=== PATIENT | male | born 1965 | race Caucasian/White ===

== ENCOUNTER 2024-08-05 10:56 | Inpatient (IN) | payer OTHER ==
[~2024-08-05] VITALS: Ht 185.4 cm; Wt 115.8 kg
--- NOTE | 2024-08-05 11:04 | ERN ---
ED Note History of Present Illness Stated Complaint: LOWER ABD PAIN Chief Complaint: Abdominal Pain Time Seen by MD: 10:58 Dictation: PATIENT IS A 59-YEAR-OLD MALE HERE WITH COMPLAINTS OF SUPRAPUBIC AND LEFT LOWER QUADRANT PAIN WITH CONSTIPATION AND DIFFICULTY WITH URINATION ONSET YESTERDAY. HE STATES YESTERDAY HE WAS HAVING TROUBLE URINATING AND THEN WHEN HE HAD TO HAVE A BOWEL MOVEMENT, IT WAS HARD AND VERY CONSTIPATED. STATES HE IS NOW EMPTYING HIS BLADDER DENIES FEVER CHILLS NO NAUSEA NO VOMITING. PATIENT DOES HAVE A HISTORY OF DIVERTICULAR Allergies: Coded Allergies: acetaminophen (Unverified Allergy, Unknown, 08/05/24) propoxyphene (Unverified Allergy, Unknown, 08/05/24) Past Medical History RN Note Reviewed/Agreed w/PFSH: Yes Review of System Dictation CONSTITUTIONAL: NEGATIVE EXCEPT FOR HPI HEAD/FACE: NEGATIVE EXCEPT FOR HPI EENT: NEGATIVE EXCEPT FOR HPI RESPIRATORY: NEGATIVE EXCEPT FOR HPI GASTROINTESTINAL/ABDOMINAL: NEGATIVE EXCEPT FOR HPI SUPRAPUBIC AND LEFT LOWER QUADRANT TENDERNESS GENITOURINARY: NEGATIVE EXCEPT FOR HPI MUSCULOSKELETAL: NEGATIVE EXCEPT FOR HPI INTEGUMENTARY: NEGATIVE EXCEPT FOR HPI NEUROLOGICAL/PSYCH: NEGATIVE EXCEPT FOR HPI HEMATOLOGIC/LYMPHATIC: NEGATIVE EXCEPT FOR HPI ALL SYSTEMS NEGATIVE, EXCEPT NOTED ABOVE. 13 POINT REVIEW OF SYSTEMS ASSESSED AND ALL NEGATIVE EXCEPT FOR ABOVE. Initial Vital Sign VS Vital Signs Date Time Temp Pulse Resp B/P (MAP) Pulse Ox O2 Delivery O2 Flow Rate FiO2 08/05/24 10:57 97.9 101 16 128/88 98 Room Air 0 08/05/24 11:25 21 Physical Exam Dictation VITAL SIGNS REVIEWED GENERAL APPEARANCE: ALERT, ORIENTED X 3, MILD ACUTE DISTRESS, WELL DEVELOPED, NOURISHED. HEAD AND FACE: NON-TRAUMATIC. EYES: PERRL, PINK CONJUNCTIVAS, EYELID NO TRAUMA, ANTERIOR CHAMBER WITH ARCUS SENILIS. EARS: PINNAS INTACT AND NO SIGNS OF TRAUMA OR ERYTHEMA EAR CANALS CLEAR AND NO D ISCHARGE TM NO ERYTHEMA NOSE: NO DISCHARGE, NO BLEEDING. OROPHARYNX: MOUTH NORMAL, TONGUE PINK, PHARYNX CLEAR,NO ERYTHEMA, TONSILS NO EXUDATES, NO ABSCESSES NOTED, MUCOUS MEMBRANE MOIST NECK: SUPPLE, NON-TENDER, NO THYROMEGALY, NO MASSES, NO JVD, NO BRUITS BREAST:DEFERRED CHEST:NO TENDERNESS, NO CREPITUS, NO PARADOXICAL MOVEMENT, NO RETRACTIONS LUNGS:CLEAR, WELL-VENTILATED, SYMMETRIC, NO RALES, NO WHEEZING, NO RHONCHI, NO STRIDOR, GOOD BREATH SOUNDS BILATERALLY HEART: REGULAR RATE, REGULAR RHYTHM, NO MURMUR, NO GALLOPS MILD SUPRAPUBIC AND LEFT LOWER QUADRANT TENDERNESS WITH PALPATION, NO REBOUND, NO MASSES NO HEPATOMEGALY, NO SPLENOMEGALY, NO PULLIAM'S SIGN, NO HERNIAS. RECTAL: DEFERRED GENITAL: DEFERRED NEUROLOGICAL: NORMAL SPEECH, MOTOR FUNCTION INTACT, SENSORY FUNCTION INTACT MUSCULOSKELETAL: NECK NONTENDER, FULL RANGE OF MOTION, BACK NONTENDER, FULL RANGE OF MOTION, EXTREMITIES: NONTENDER, FULL RANGE OF MOTION SKIN: COLOR PINK, DRY, NO TURGOR, NO RASH, NO LACERATIONS, NO ABRASIONS, NO CONTUSIONS. LYMPHATIC: DEFERRED Results (Laboratory/Radiology) Laboratory/Radiology Laboratory Tests Test 08/05/24 11:10 08/05/24 11:20 08/06/24 05:16 Urine Color YELLOW (YELLOW) Urine Appearance CLEAR (CLEAR) Urine pH 6.0 (5.0-8.0) Urine Specific [place] 1.016 (1.001-1.031) Urine Protein 30 mg/dL (NEGATIVE) H Urine Glucose (UA) NEGATIVE mg/dL (NEGATIVE) Urine Ketones NEGATIVE mg/dL (NEGATIVE) Urine Occult Blood NEGATIVE (NEGATIVE) Urine Nitrate NEGATIVE (NEGATIVE) Urine Bilirubin NEGATIVE mg/dL (NEGATIVE) Urine Urobilinogen 0.2 mg/dL (0.2-1.0) Urine Leukocyte Esterase NEGATIVE Radha/uL Urine RBC 2-5 /HPF (0-1) H Urine WBC 2-5 /HPF (0-1) H Urine Bacteria None /HPF (None Seen) White Blood Count 15.3 K/uL (4.8-10.8) H 11.4 K/uL (4.8-10.8) #H Red Blood Count 5.02 MIL/uL (4.50-6.20) 4.32 MIL/uL (4.50-6.20) L Hemoglobin 15.0 g/dL (14.0-18.0) 12.9 g/dL (14.0-18.0) L Hematocrit 43.9 % (42-54) 38.5 % (42-54) L Mean Corpuscular Volume 87.5 fL (79-99) 89.1 fL (79-99) Mean Corpuscular Hemoglobin 29.9 pg (27.0-33.0) 29.9 pg (27.0-33.0) Mean Corpuscular Hemoglobin Concent 34.2 g/dL (32.0-36.0) 33.5 g/dL (32.0-36.0) Red Cell Distribution Width 13.8 % (11.0-15.5) 13.6 % (11.0-15.5) Platelet Count 200 K/uL (130-400) 169 K/uL (130-400) Mean Platelet Volume 9.9 fL (7.5-10.5) 10.1 fL (7.5-10.5) Immature Granulocyte % (Auto) 0.3 % (0-1) 0.4 % (0-1) Neutrophils (%) (Auto) 83.5 % (40.0-77.0) H 77.7 % (40.0-77.0) H Lymphocytes (%) (Auto) 9.8 % (21.0-51.0) L 12.1 % (21.0-51.0) L Monocytes (%) (Auto) 5.8 % (3.0-13.0) 7.8 % (3.0-13.0) Eosinophils (%) (Auto) 0.3 % (0.0-8.0) 1.7 % (0.0-8.0) Basophils (%) (Auto) 0.3 % (0.0-5.0) 0.3 % (0.0-5.0) Neutrophils # (Auto) 12.7 K/uL (1.8-7.7) H 8.8 K/uL (1.8-7.7) H Lymphocytes # (Auto) 1.5 K/uL (1.0-4.8) 1.4 K/uL (1.0-4.8) Monocytes # (Auto) 0.9 K/uL (0.1-1.0) 0.9 K/uL (0.1-1.0) Eosinophils # (Auto) 0.05 K/uL (0.00-0.70) 0.19 K/uL (0.00-0.70) Basophils # (Auto) 0.05 K/uL (0.00-0.20) 0.03 K/uL (0.00-0.20) Absolute Immature Granulocyte (auto 0.04 K/uL (0-1) 0.04 K/uL (0-1) Segmented Neutrophils % 59 % (40-70) Band Neutrophils % 15 % (0-2) H Lymphocytes % (Manual) 22 % (22-44) Monocytes % (Manual) 4 % (2-9) Nucleated Red Blood Cells 0.0 % (0.0-0.19) 0.0 % (0.0-0.19) Differential Comment MANUAL DIFFERENTIAL White Cell Morphology Comment CONSISTENT W/DIFF Platelet Morphology Comment ADEQUATE Red Blood Cell Morphology NORMAL Sodium Level 132 mmol/L (136-145) L 138 mmol/L (136-145) Potassium Level 3.8 mmol/L (3.5-5.1) 4.0 mmol/L (3.5-5.1) Chloride Level 97 mmol/L (101-111) L 103 mmol/L (101-111) Carbon Dioxide Level 28 mmol/L (21-32) 24 mmol/L (21-32) Blood Urea Nitrogen 7 mg/dL (7-18) 8 mg/dL (7-18) Creatinine 0.9 mg/dL (0.5-1.3) 0.8 mg/dL (0.5-1.3) Glomerular Filtration Rate Calc 99 mL/min (>90) 103 mL/min (>90) Random Glucose 133 mg/dL (70-105) H 112 mg/dL (70-105) H Hemoglobin A1c 5.0 % (4.0-6.0) Estimated Average Glucose (eAG) 97 mg/dL (70-126) Total Calcium 9.3 mg/dL (8.5-10.1) 8.5 mg/dL (8.5-10.1) Lipase 15 U/L (16-77) L Erythrocyte Sedimentation Rate 41 MM/HR (0-20) H Lactic Acid Level 1.4 mmol/L (0.8-2.5) Magnesium Level 2.00 mg/dL (1.80-2.40) Total Bilirubin 0.9 mg/dL (0.2-1.0) Direct Bilirubin 0.1 mg/dL (0.0-0.3) Aspartate Amino Transf (AST/SGOT) 23 U/L (10-37) Alanine Aminotransferase (ALT/SGPT) 20 U/L (12-78) Alkaline Phosphatase 58 U/L (50-136) Total Protein 6.5 g/dL (6.0-8.3) Albumin 2.8 g/dL (3.5-5.0) L Labs Reviewed?: Yes ED Course ED Course Orders Procedure Category Date Status Time Cbc With Differential LAB 08/05/24 Complete 11:01 Urinalysis Profile LAB 08/05/24 Complete 11:01 Ct Abdomen/Pelvis CT 08/05/24 Resulted W/Contrast 11:01 0.9%Nacl 1000ml (Ns PHA 08/05/24 Complete 1000ml) 11:30 Ketorolac PHA 08/05/24 Complete Tromethamine 30mg/Ml 11:30 Lipase LAB 08/05/24 Complete 11:01 Basic Metabolic Panel LAB 08/05/24 Complete 11:01 Manual Differential LAB 08/05/24 Complete 11:20 Iohexol (Omnipaque) PHA 08/05/24 Complete 13:29 Morphine 2mg Syg PHA 08/05/24 Complete (Morphine 2mg Syg) 15:00 Blood Cult DAMIR 08/05/24 In Process 15:03 Zosyn 3.375gm+Ns 50ml PHA 08/05/24 Complete (Zosyn 3.375gm+Ns 15:03 Morphine 4mg Syg PHA 08/05/24 Complete (Morphine 4mg Syg) 18:30 Admit Orders ADM 08/05/24 Transmitted 19:02 Edm Admit Bridge Order ADM 08/05/24 Transmitted 19:02 Vital Signs(Adult CPOE 08/05/24 Transmitted Hospitalist) 20:20 Daily Weights CPOE 08/05/24 Transmitted 20:20 I&O Q Shift CPOE 08/05/24 Transmitted 20:20 Acetaminophen 325 Tab PHA 08/05/24 In Process (Tylenol 325mg Tab 20:30 Acetaminophen 325 Tab PHA 08/05/24 In Process (Tylenol 325mg Tab 20:30 Ondansetron 4mg Inj PHA 08/05/24 In Process (Zofran 4mg Inj) 20:30 Nurse To Enter Home CPOE 08/05/24 Transmitted Medication 20:20 Admit Orders ADM 08/05/24 Transmitted 20:20 Condition: CPOE 08/05/24 Transmitted 20:20 Activity: Ad Maci CPOE 08/05/24 Transmitted 20:20 Full Liquid DIET 08/06/24 Transmitted Breakfast Apply Scds CPOE 08/05/24 Transmitted 20:20 Zosyn 3.375gm+Ns 50ml PHA 08/05/24 In Process (Zosyn 3.375gm+Ns 23:30 0.9%Nacl 1000ml (Ns PHA 08/05/24 In Process 1000ml) 20:30 Famotidine 20mg Vial PHA 08/05/24 In Process (Pepcid 20mg Vial) 21:00 Morphine 2mg Syg PHA 08/05/24 In Process (Morphine 2mg Syg) 20:30 Cbc With Differential LAB 08/06/24 Complete 04:00 Hemoglobin A1c LAB 08/06/24 Complete 04:00 Magnesium 2gm Premix PHA 08/05/24 In Process 50ml (Magnesium 2gm 20:30 Initiate Po CORBIN 08/05/24 In Process Hypokalemia Protoc 20:20 Potassium Chloride PHA 08/05/24 In Process 20meq/100ml ([place] 20:30 Potassium Chl 10% PHA 08/05/24 In Process Elixir 20meq (Kcl 10% 20:30 Potassium Chloride PHA 08/05/24 In Process 20meq Er (K-Dur/Klor- 20:30 Notify Physician If CPOE 08/05/24 Transmitted There Is 20:20 Notify Md On The Next CPOE 08/05/24 Transmitted 20:20 Notify Md On The CPOE 08/05/24 Transmitted Next(Cont.) 20:20 Guaifenesin-Dm PHA 08/06/24 In Process 200/20mg 10ml 01:00 Erythrocyte LAB 08/06/24 Complete Sedimentation Rate 04:00 Lactic Acid LAB 08/06/24 Complete 04:00 Hepatic Function Panel LAB 08/06/24 Complete 04:00 Basic Metabolic Panel LAB 08/06/24 Complete 04:00 Magnesium LAB 08/06/24 Complete 04:00 Current Medications Medications (Trade) Dose Ordered Sig/Mikey Route PRN Reason Start Time Stop Time Status Last Admin Dose Admin Iohexol (Omnipaque) 75 ml STK-MED ONCE IV 08/05/24 13:29 08/05/24 13:29 DC Ketorolac Tromethamine (toRADol) 30 mg ONCE ONCE IVP 08/05/24 11:30 08/05/24 11:31 DC 08/05/24 11:29 Morphine Sulfate (morPHINE 2MG SYG) 2 mg ONCE ONCE IVP 08/05/24 15:00 08/05/24 15:01 DC 08/05/24 14:58 Morphine Sulfate (morPHINE 4MG SYG) 4 mg ONCE IVP 08/05/24 18:30 08/05/24 23:30 DC 08/05/24 18:46 Piperacillin Sod/ Tazobactam Sod (Zosyn 3.375gm+NS 50ml) 3.375 gm ONCE STAT IVPB 08/05/24 15:03 08/05/24 15:05 DC 08/05/24 15:34 Sodium Chloride 1,000 ml @ 0 mls/hr ONCE ONCE IV 08/05/24 11:30 08/05/24 11:31 DC 08/05/24 11:28 Vital Signs Date Time Temp Pulse Resp B/P (MAP) Pulse Ox O2 Delivery O2 Flow Rate FiO2 08/06/24 03:49 98.8 81 18 139/90 96 Room Air 08/05/24 23:22 97 Room Air* 0 08/05/24 22:10 99.9 91 21 144/90 97 Room Air 08/05/24 21:42 98.6 92 18 131/80 97 Room Air* 0 08/05/24 20:00 98.6 87 18 118/77 96 Room Air* 0 08/05/24 18:56 97.9 80 16 117/74 98 Room Air* 0 08/05/24 14:58 97.9 83 16 123/85 98 Room Air* 0 08/05/24 13:00 97.9 80 16 128/80 98 Room Air* 0 08/05/24 11:25 97.9 101 16 128/88 98 Room Air* 0 08/05/24 10:57 97.9 101 16 128/88 98 Room Air 0 1410/patient's pain is currently controlled. Pending results of CT scan and we will follow up for management at once it has been red. 1515/SPOKE WITH PATIENT IN HIS AT LENGTH REGARDING MANAGEMENT HE AGREED THE PATIENT SHOULD BE ADMITTED TO THE HOSPITAL WITH A15 K WBCS AND ACUTE DIVERTICULITIS. 1645/SPOKE WITH JOSELYN, DIRECTOR OF COMMUNITY LIFE AND SHE SAYS STILL PENDING CALL BACK FROM HOSPITALIST GROUP FOR ADMISSION.1854/ 1854/SPOKE WITH DONTA ARROYO HOSPITALIST AND REVIEWED CT LABS INTERVENTIONS FOR ACUTE SIGMOID DIVERTICULITIS INCLUDING PAIN MANAGEMENT X3 SHE AGREED TO ADMIT. Medical Decision Making MDM MDM: DIFFERENTIAL DIAGNOSIS: APPENDICITIS/DIVERTICULITIS/HERNIA/UTI/PYELONEPHRITIS RATIONALE: TESTS CONSIDERED AND ORDERED SECONDARY TO SHARED DECISION MAKING INCLUDE: LABS, AND RADIOLOGY PREVIOUS OUTSIDE RECORDS REVIEWED: OLD ER VISITS. RISK OF COMPLICATION AND/OR MORBIDITY OR MORTALITY OF PATIENT MANAGEMENT: MILD MODERATE MEDICATIONS-PER MEDICATION RECONCILIATION NEED FOR HOSPITALIZATION: PATIENT DOES MEET CRITERIA FOR HOSPITALIZATION. PATIENT WILL NEED ADMITTED FOR NPO, PAIN MANAGEMENT AND FLUID RESUSCITATION NEED FOR EMERGENCY MAJOR/MINOR SURGERY: NO THERE ARE NO SOCIAL CONCERNS WITH THIS PATIENT. PRESCRIPTION DRUG MANAGEMENT PRESCRIPTIONS WILL INCLUDE SYMPTOMATIC CARE PATIENT'S PRIOR EXTERNAL MEDICAL RECORDS FROM OTHER ER VISITS WERE REVIEWED BY ME INDICATED. PRIOR TESTING AND RESULTS FROM PREVIOUS VISITS WERE REVIEWED. PRIOR TESTS WERE TAKEN INTO ACCOUNT WITH MEDICAL DECISION MAKING AND RESOURCE UTILIZATION, INDEPENDENT HISTORIAN/HISTORIANS WERE USED TO OBTAIN COMPLETE MEDICAL HISTORY. I INDEPENDENTLY INTERPRETED THE TEST THAT WERE PERFORMED, RESULTS WERE REVIEWED BY ME AND CONSIDERED FINDINGS ON RADIOLOGY IF ORDERED. MEDICAL MANAGEMENT AND EXAMINATION INTERPRETATION DISCUSSIONS WERE HAD BY ME WITH OTHER QUALIFIED HEALTHCARE PROFESSIONALS INDICATED FOR THE PATIENT'S CARE. DX & DISP Disposition: Inpatient Departure Impression: Primary Impression: Diverticulitis of sigmoid colon Additional Impressions: Uncontrolled diabetes mellitus, Hyponatremia, Dehydration Condition: Stable Time of Disposition: 15:14 I have reviewed the case, and I agree with, Diagnosis and Plan I performed a substantive portion of the visit. I have reviewed and personally made and approve the management plan that is documented in the notes by myself with CHIRAG/resident. I acknowledged full responsibility for the patient's management plan. NURA SHAFER NP Aug 05, 2024 11:04 JO ANN CASTRO DO Aug 06, 2024 07:41
[2024-08-05 11:27] LABS: APPEARANCE,URINE CLEAR (CLEAR); BILIRUBIN,URINE NEGATIVE (NEGATIVE); COLOR,URINE YELLOW (YELLOW); GLUCOSE, URINE (UA) NEGATIVE (NEGATIVE); KETONES,URINE NEGATIVE (NEGATIVE); LEUKOCYTE ESTERASE ,URINE NEGATIVE Leu/uL (NEGATIVE); NITRATE,URINE NEGATIVE (NEGATIVE); OCCULT BLOOD,URINE NEGATIVE (NEGATIVE); PROTEIN,URINE 30 mg/dL (NEGATIVE); UROBILINOGEN,URINE 0.2 mg/dL (0.2-1.0)
[2024-08-05] MEDS: 0.9%NACL 1000ML 1,000 ML IV ONE (11:28)
[2024-08-05 11:29] LABS: BASOPHILS # (AUTO) 0.05 K/uL (0.00-0.20); BASOPHILS % (AUTO) 0.3 % (0.0-5.0); EOSINOPHILS # (AUTO) 0.05 K/uL (0.00-0.70); EOSINOPHILS % (AUTO) 0.3 % (0.0-8.0); HEMATOCRIT 43.9 % (42-54); IMMATURE GRANULOCYTE ABSOLUTE 0.04 K/uL (0-1); LYMPHOCYTES # (AUTO) 1.5 K/uL (1.0-4.8); LYMPHOCYTES % (AUTO) 9.8 % (21.0-51.0); MEAN CORPUSCULAR HEMOGLOBIN 29.9 pg (27.0-33.0); MEAN CORPUSCULAR HGB CONC 34.2 g/dL (32.0-36.0); MEAN CORPUSCULAR VOLUME 87.5 fL (79-99); MONOCYTES # (AUTO) 0.9 K/uL (0.1-1.0); MONOCYTES % (AUTO) 5.8 % (3.0-13.0); NEUTROPHILS # (AUTO) 12.7 K/uL (1.8-7.7); NEUTROPHILS % (AUTO) 83.5 % (40.0-77.0); PLATELET COUNT (AUTO) 200 K/uL (130-400); RED BLOOD CELL COUNT(AUTO) 5.02 MIL/uL (4.50-6.20); RED CELL DISTRIBUTION WIDTH 13.8 % (11.0-15.5); WHITE BLOOD COUNT (AUTO) 15.3 K/uL (4.8-10.8)
[2024-08-05] MEDS: ketOROlac 30MG VIAL (30MG/ML) IVP ONE (11:29)
[2024-08-05 11:34] LABS: ADD UA MICROSCOPIC YES
[2024-08-05 11:38] LABS: CREATININE 0.9 mg/dL (0.5-1.3); POTASSIUM 3.8 mmol/L (3.5-5.1)
[2024-08-05 12:52] LABS: BAND NEUTROPHILS % (MANUAL) 15 % (0-2); LYMPHOCYTES % (MANUAL) 22 % (22-44); MAN.DIFF COMMENT-IMPRESSION MANUAL DIFFERENTIAL; MONOCYTES % (MANUAL) 4 % (2-9); SEGMENTED NEUTROPHILS % 59 % (40-70); TOTAL CELLS COUNTED 100; WBC MORPHOLOGY CONSISTENT W/DIFF
[2024-08-05 12:53] LABS: PLATELET MORPHOLOGY COMMENT ADEQUATE
[2024-08-05] MEDS ORDERED: IOHEXOL-350 75 ML VIAL IV ONE (13:29)
--- NOTE | 2024-08-05 14:56 | HMCIMG ---
CT ABDOMEN/PELVIS W/CONTRAST HISTORY: Left lower abdominal pain and tenderness COMPARISON: None TECHNIQUE: Multiple sequential axial images of the abdomen and pelvis were obtained from the dome of the diaphragm through symphysis pubis. Patient was not given contrast through intravenous route. Oral contrast was not given. FINDINGS: No pleural effusion is seen bilaterally. There is no evidence of parenchymal disease or pulmonary nodule of the visualized lower lungs. Degenerative changes of the thoracolumbar spine are present. The heart is not enlarged. The liver, spleen, adrenal glands and pancreas are unremarkable. There is no evidence of hydronephrosis bilaterally. No evidence of renal stone is seen. Fecal material is seen in the colon. There are normal size retroperitoneal and mesenteric lymph nodes. No ascites is seen. Atherosclerotic changes are present. There is sigmoid colon wall thickening with adjacent fat stranding suggestive acute sigmoid diverticulitis. No focal abscess is seen. Pelvic sidewalls are symmetric bilaterally. Bladder is poorly distended wall thickening with adjacent fat stranding suspicious for cystitis. Urinalysis correlation may be helpful. IMPRESSION: 1. There is sigmoid colon wall thickening with adjacent fat stranding suggestive acute sigmoid diverticulitis. No focal abscess is seen. Bladder is poorly distended wall thickening with adjacent fat stranding suspicious for cystitis. Urinalysis correlation may be helpful. CT was performed with one or more following dose reduction techniques: automated exposure control, adjustment of the mA and kv according to patient's size, or use of a iterative reconstruction technique.
[2024-08-05] MEDS: morPHINE 2 MG SYG IVP ONE (14:58)
[2024-08-05] MEDS: ZOSYN 3.375GM +NS 50ML IVPB STA (15:34)
[2024-08-05] MEDS: morPHINE 4 MG SYG IVP SCH (18:46)
--- NOTE | 2024-08-05 20:20 | HP ---
[facility] HISTORY AND PHYSICAL Date of Service: Aug 05, 2024 Time of Service: 20:20 PCP: Self-referral HISTORY OF PRESENT ILLNESS: This is a 59-year-old male a winter [place] coming from [place] with past medical history of GERD and hyperlipidemia who presents to the ED for complaints of lower quadrant abdominal pain associated with difficulty of urination which started yesterday.Patient reports he was very constipated yesterday and had to use a suppository and afforded slight relief.Today lower abdominal pain persist so he decieded to come to the ED for evaluation. Patient reports he had EGD and colonoscopy on 2023 and was told he has a GERD and a benign polyps.Patient denies fever,chills,nausea,vomiting ,chest pain,palpitation and shortness of breath. Latest vital signs temperature 99.9, heart rate 91, blood pressure 144/90 saturation 97% on room air. Labs: WBC 15.3 with negative left shift of neutrophils 83, hemoglobin 15, hematocrit 43 platelet count 200. Sodium 132, chloride 97, glucose [address] abdomen and pelvis with contrast result revealed there is sigmoid colon wall thickening with adjacent fat stranding suggestive acute sigmoid diverticulitis. No focal abscess is seen. Bladder is poorly distended wall thickening with adjacent fat stranding suspicious for cystitis urinalysis correlation may be helpful. While in the ER patient received Zosyn IV, morphine 4 mg IV, Toradol 30 mg IV and 1 L NS bolus. We will admit patient for further medical management. REVIEW OF SYSTEMS CONSTITUTIONAL: Denies fevers, chills, or night sweats. No unintentional weight loss reported. NEUROLOGICAL: Denies headache, amaurosis fugax, motor weakness, sensory deficit, vertigo/spinning sensation, gait abnormalities, or tremors. ENT: No hearing loss, otalgia, otorrhea, rhinitis, rhinorrhea, hoarseness, or sore throat. CARDIOVASCULAR: Denies any exertional angina, dyspnea on exertion, orthopnea, paroxysmal nocturnal dyspnea, palpitations, life-threatening arrhythmias, claudication. PULMONARY: Denies any shortness of breath, cough, phlegm/sputum, hemoptysis, pleuritic chest pain. SLEEP: Denies morning headaches, daytime somnolence or napping. Denies difficulty falling asleep, staying asleep, waking from sleep. Denies knowledge of snoring. GASTROINTESTINAL: Complained of Bilateral lower abdominal pain and constipation Denies any type of dysphagia to either liquids or solids. Denies nausea, vomiting, pyrosis, early satiety, diarrhea, changes in stool consistency or caliber. Denies coffee-ground emesis, hematemesis, hematochezia, or melanotic stools. GENITOURINARY: Denies frequency, urgency, nocturia, hematuria or incontinence (Storage/Irritative symptoms.) Low urinary stream, straining to void, urinary intermittency or hesitancy, splitting of the voiding stream, terminal dribbling. ENDOCRINOLOGIC: Denies polyuria, polydipsia, polyphagia or heat/cold intolerances. HEMATOLOGIC: Denies thrombophilia/previous clots, or coagulopathy/bleeding disorders. ONCOLOGIC: Denies personal history of malignancy. DERMATOLOGIC: Denies rashes or pruritus. PSYCHIATRIC: Denies any suicidal or homicidal ideation. Denies hallucinations. PAST MEDICAL HISTORY: [ GERD and hyperlipidemia ] PAST SURGICAL HISTORY: [Right wrist surgery, bilateral knee surgery back surgery ] PAST SOCIAL HISTORY: [ Patient lives with . Patient denies alcohol tobacco and recreational drug use] FAMILY HISTORY: [ Hypertension and cardiovascular disease] Coded Allergies: acetaminophen (Unverified Allergy, Unknown, 08/05/24) propoxyphene (Unverified Allergy, Unknown, 08/05/24) PHYSICAL EXAM GENERAL APPEARANCE: The patient is awake, alert, and oriented, in no acute cardiopulmonary distress. NEUROLOGICAL: Cranial nerves II-XII grossly intact. Motor is 5/5 in bilateral upper and lower extremities proximal to distal. No sensory deficits. HEENT: Face is symmetric. Pupils are equal and reactive. Extraocular movements are intact. NECK: Supple. No JVD. No thyromegaly. No submental, submandibular, pre- /postauricular, occipital or supraclavicular lymphadenopathy. CHEST: Normal chest expansion. No Telemetry. LUNGS: Absence of any rales, rhonchi or any wheezing. CARDIOVASCULAR: Regular. S1 and S2 normal. No appreciable rubs, murmurs or gallops. ABDOMEN: Abdominal tenderness around lower abdominal quadrant Soft and nondistended. There is no rebound, voluntary guarding, or rigidity. : Deferred. No Cordero. EXTREMITIES: Non-edematous and not cyanotic. No clubbing. Good capillary refill. SKIN: No skin breakdown. Vital Sign (Last 24 Hours) 3/24/25 20:00 Temp 98.6 Pulse 87 Resp 18 B/P (MAP) 118/77 Pulse Ox 96 O2 Delivery Room Air* O2 Flow Rate 0 FiO2 21 LABS: Laboratory: Test 08/05/24 11:20 08/05/24 11:10 Range/Units White Blood Count 15.3 H 4.8-10.8 K/uL Red Blood Count 5.02 4.50-6.20 MIL/uL Hemoglobin 15.0 14.0-18.0 g/dL Hematocrit 43.9 42-54 % Mean Corpuscular Volume 87.5 79-99 fL Mean Corpuscular Hemoglobin 29.9 27.0-33.0 pg Mean Corpuscular Hemoglobin Concent 34.2 32.0-36.0 g/dL Red Cell Distribution Width 13.8 11.0-15.5 % Platelet Count 200 130-400 K/uL Mean Platelet Volume 9.9 7.5-10.5 fL Immature Granulocyte % (Auto) 0.3 0-1 % Neutrophils (%) (Auto) 83.5 H 40.0-77.0 % Lymphocytes (%) (Auto) 9.8 L 21.0-51.0 % Monocytes (%) (Auto) 5.8 3.0-13.0 % Eosinophils (%) (Auto) 0.3 0.0-8.0 % Basophils (%) (Auto) 0.3 0.0-5.0 % Neutrophils # (Auto) 12.7 H 1.8-7.7 K/uL Lymphocytes # (Auto) 1.5 1.0-4.8 K/uL Monocytes # (Auto) 0.9 0.1-1.0 K/uL Eosinophils # (Auto) 0.05 0.00-0.70 K/uL Basophils # (Auto) 0.05 0.00-0.20 K/uL Absolute Immature Granulocyte (auto 0.04 0-1 K/uL Segmented Neutrophils % 59 40-70 % Band Neutrophils % 15 H 0-2 % Lymphocytes % (Manual) 22 22-44 % Monocytes % (Manual) 4 2-9 % Nucleated Red Blood Cells 0.0 0.0-0.19 % Differential Comment MANUAL DIFFERENTIAL White Cell Morphology Comment CONSISTENT W/DIFF Platelet Morphology Comment ADEQUATE Red Blood Cell Morphology NORMAL Sodium Level 132 L 136-145 mmol/L Potassium Level 3.8 3.5-5.1 mmol/L Chloride Level 97 L 101-111 mmol/L Carbon Dioxide Level 28 21-32 mmol/L Blood Urea Nitrogen 7 7-18 mg/dL Creatinine 0.9 0.5-1.3 mg/dL Glomerular Filtration Rate Calc 99 >90 mL/min Random Glucose 133 H 70-105 mg/dL Total Calcium 9.3 8.5-10.1 mg/dL Lipase 15 L 16-77 U/L Urine Color YELLOW YELLOW Urine Appearance CLEAR CLEAR Urine pH 6.0 5.0-8.0 Urine Specific [place] 1.016 1.001-1.031 Urine Protein 30 H NEGATIVE mg/dL Urine Glucose (UA) NEGATIVE NEGATIVE mg/dL Urine Ketones NEGATIVE NEGATIVE mg/dL Urine Occult Blood NEGATIVE NEGATIVE Urine Nitrate NEGATIVE NEGATIVE Urine Bilirubin NEGATIVE NEGATIVE mg/dL Urine Urobilinogen 0.2 0.2-1.0 mg/dL Urine Leukocyte Esterase NEGATIVE NEGATIVE Radha/uL Urine RBC 2-5 H 0-1 /HPF Urine WBC 2-5 H 0-1 /HPF Urine Bacteria None None Seen /HPF Current Medications Medications (Trade) Dose Ordered Sig/Mikey Route PRN Reason Start Time Stop Time Status Last Admin Dose Admin Morphine Sulfate (morPHINE 4MG SYG) 4 mg ONCE IVP 08/05/24 18:30 08/05/24 23:30 08/05/24 18:46 4 MG Piperacillin Sod/ Tazobactam Sod (Zosyn 3.375gm+NS 50ml) 3.375 gm ONCE STAT IVPB 08/05/24 15:03 08/05/24 15:05 DC 08/05/24 15:34 3.375 GM DIAGNOSTICS / RADIOLOGY: [ ] ASSESSMENT: Acute sigmoid diverticulitis POA Acute leukocytosis POA Hyperglycemia POA Morbid obesity POA Hyperlipidemia POA GERD POA PLAN: We will admit patient in medical telemetry We will start on full liquid diet We will continue on Zosyn IV Q 8 hours for empiric coverage We will start NS @ 100 ml / hr and re evaluate We will start on Famotidine 20 mg IV bid for GI prophylaxis We will replace electrolytes as needed per protocol We will add prn medication for fever,pain,cough, nausea and vomiting We will reconcile home meds once medlist available We will request labs in am Further orders to follow depending on above results Case discussed with attending physician and came up with above treatment and plan of care. ADVANCED CARE PLANNING 1. Which of the following were discussed? Hospice Care - No Therapeutic options - Yes Advance Directives - No Other discussions - 2. Discussed with who? Patient 3. Voluntary nature of this service was explained to the patient? Yes 4. Amount of time spent - __20 5. Reviewed by Physician? (if this service was performed by NPP) Yes Patient seen and examined by me. Agree with note by AIR TRAFFIC INSTRUCTOR SEE ADDITIONAL ORDERS PER CHART DISCUSSED WITH NURSING STAFF LITA MONTEIRO POTATO CHIP PACKAGING MACHINE OPERATOR Aug 05, 2024 20:20
[2024-08-05] MEDS ORDERED: PoTASSium chloRIDE 20MEQ/100ML 100 ML IV PRN (20:30)
[2024-08-05] MEDS ORDERED: PoTASSium chloRIDE 20MEQ ER 20 MEQ ERTAB PO PRN (20:30)
[2024-08-05] MEDS ORDERED: MAGNESIUM 2GM PREMIX 50ML 50 ML IV PRN (20:30)
[2024-08-05] MEDS ORDERED: ondanSETRON 4MG INJ IV PRN (20:30)
[2024-08-05] MEDS ORDERED: PoTASSium chl 10% ELIXIR 20MEQ 20 MEQ/15 ML UDCUP PO PRN (20:30)
[2024-08-05] MEDS ORDERED: acetaMINOPHEN 325 MG TAB PO PRN ×2 (20:30)
[2024-08-05] MEDS: FAMOTIDINE 20MG VIAL IV SCH (20:57)
[2024-08-05] MEDS: 0.9%NACL 1000ML 1,000 ML IV SCH (20:57)
[2024-08-05 22:10] VITALS: BP 144/90; PULSE 91; RESP 21; TEMP 99.8
[2024-08-05 23:22] VITALS: O2SAT 97
[2024-08-05] MEDS: ZOSYN 3.375GM+NS 50ML 50 ML IV SCH (23:31)
[2024-08-06] VITALS (7 sets, daily range): BP systolic 126–140; BP diastolic 43–93; PULSE 80–83; RESP 17–19; TEMP 98.5–99.7; O2SAT 90–94
[2024-08-06] MEDS: guaiFENesin-DM 200/20MG 10ML PO PRN (01:03)
[2024-08-06] MEDS: morPHINE 2 MG SYG IVP PRN (02:30)
[2024-08-06 05:34] LABS: BASOPHILS # (AUTO) 0.03 K/uL (0.00-0.20); BASOPHILS % (AUTO) 0.3 % (0.0-5.0); EOSINOPHILS # (AUTO) 0.19 K/uL (0.00-0.70); EOSINOPHILS % (AUTO) 1.7 % (0.0-8.0); HEMATOCRIT 38.5 % (42-54); IMMATURE GRANULOCYTE ABSOLUTE 0.04 K/uL (0-1); LYMPHOCYTES # (AUTO) 1.4 K/uL (1.0-4.8); LYMPHOCYTES % (AUTO) 12.1 % (21.0-51.0); MEAN CORPUSCULAR HEMOGLOBIN 29.9 pg (27.0-33.0); MEAN CORPUSCULAR HGB CONC 33.5 g/dL (32.0-36.0); MEAN CORPUSCULAR VOLUME 89.1 fL (79-99); MONOCYTES # (AUTO) 0.9 K/uL (0.1-1.0); MONOCYTES % (AUTO) 7.8 % (3.0-13.0); NEUTROPHILS # (AUTO) 8.8 K/uL (1.8-7.7); NEUTROPHILS % (AUTO) 77.7 % (40.0-77.0); PLATELET COUNT (AUTO) 169 K/uL (130-400); RED BLOOD CELL COUNT(AUTO) 4.32 MIL/uL (4.50-6.20); RED CELL DISTRIBUTION WIDTH 13.6 % (11.0-15.5); WHITE BLOOD COUNT (AUTO) 11.4 K/uL (4.8-10.8)
[2024-08-06 06:23] LABS: ALBUMIN 2.8 g/dL (3.5-5.0); BILIRUBIN,DIRECT 0.1 mg/dL (0.0-0.3); BILIRUBIN,TOTAL 0.9 mg/dL (0.2-1.0); CREATININE 0.8 mg/dL (0.5-1.3); TOTAL PROTEIN, SERUM 6.5 g/dL (6.0-8.3)
[2024-08-06] MEDS ORDERED: LANS30CA53 PO (11:31)
[2024-08-06] MEDS ORDERED: PREG50CA64 PO (11:31)
[2024-08-06] MEDS ORDERED: SIMV-46 PO (11:31)
[2024-08-06] MEDS ORDERED: MULT-1203 PO (11:31)
--- NOTE | 2024-08-06 11:58 | NUR ---
DCP -- Home Patient is a [place] from [place]. [place] address: [address] [address], [place], [phone]. Patient lives with Catalina Marx, Spouse [phone] in an RV with four step entrance and walk in shower. is retired, remains independent and drives self. States able to complete ADL's on his own. Denies medical devices. Denies home health services, home care provider or dialysis. PCP - None per patient Pharmacy - [address] Upon discharge, Catalina Marx, Spouse [phone] and assist with care, as needed. Addendum: 08/06/24 at 1203 by BRAYDEN PRESTON RN CM Amended: Links added.
--- NOTE | 2024-08-06 13:57 | PN ---
[facility] PROGRESS NOTE Date of Service: Aug 06, 2024 Time of Service: 13:56 SUBJECTIVE: [59-year-old male admitted for acute sigmoid diverticulitis with no abscess or perforation. His WBCs slowly downtrending. Patient is afebrile. He continue with pain to his lower abdomen. Continue with IV fluids. Continue with IV antibiotics. Because of his symptoms we will keep him NPO. I discussed treatment plan with the patient and at bedside, all questions have been addressed, they verbalized understanding and is in agreement with the plan. ] REVIEW OF SYSTEMS CONSTITUTIONAL: Denies fevers, chills, or night sweats. No unintentional weight loss reported. NEUROLOGICAL: Denies headache, amaurosis fugax, motor weakness, sensory deficit, vertigo/spinning sensation, gait abnormalities, or tremors. ENT: No hearing loss, otalgia, otorrhea, rhinitis, rhinorrhea, hoarseness, or sore throat. CARDIOVASCULAR: Denies any exertional angina, dyspnea on exertion, orthopnea, paroxysmal nocturnal dyspnea, palpitations, life-threatening arrhythmias, claudication. PULMONARY: Denies any shortness of breath, cough, phlegm/sputum, hemoptysis, pleuritic chest pain. SLEEP: Denies morning headaches, daytime somnolence or napping. Denies diffi culty falling asleep, staying asleep, waking from sleep. Denies knowledge of snoring. GASTROINTESTINAL: Complained of Bilateral lower abdominal pain and constipation Denies any type of dysphagia to either liquids or solids. Denies nausea, vomiting, pyrosis, early satiety, diarrhea, changes in stool consistency or caliber. Denies coffee-ground emesis, hematemesis, hematochezia, or melanotic stools. GENITOURINARY: Denies frequency, urgency, nocturia, hematuria or incontinence (Storage/Irritative symptoms.) Low urinary stream, straining to void, urinary intermittency or hesitancy, splitting of the voiding stream, terminal dribbling. ENDOCRINOLOGIC: Denies polyuria, polydipsia, polyphagia or heat/cold intolerances. HEMATOLOGIC: Denies thrombophilia/previous clots, or coagulopathy/bleeding disorders. ONCOLOGIC: Denies personal history of malignancy. DERMATOLOGIC: Denies rashes or pruritus. PSYCHIATRIC: Denies any suicidal or homicidal ideation. Denies hallucinations. PHYSICAL EXAM GENERAL APPEARANCE: The patient is awake, alert, and oriented, in no acute cardiopulmonary distress. NEUROLOGICAL: Cranial nerves II-XII grossly intact. Motor is 5/5 in bilateral upper and lower extremities proximal to distal. No sensory deficits. HEENT: Face is symmetric. Pupils are equal and reactive. Extraocular movements are intact. NECK: Supple. No JVD. No thyromegaly. No submental, submandibular, pre-/postauricular, occipital or supraclavicular lymphadenopathy. CHEST: Normal chest expansion. No Telemetry. LUNGS: Absence of any rales, rhonchi or any wheezing. CARDIOVASCULAR: Regular. S1 and S2 normal. No appreciable rubs, murmurs or gallops. ABDOMEN: Abdominal tenderness around lower abdominal quadrant Soft and nondistended. There is no rebound, voluntary guarding, or rigidity. : Deferred. No Cordero. EXTREMITIES: Non-edematous and not cyanotic. No clubbing. Good capillary refill. SKIN: No skin breakdown. Vital Signs (last 8hr) Date Time Temp Pulse Resp B/P (MAP) Pulse Ox O2 Delivery O2 Flow Rate FiO2 08/06/24 11:23 99.7 83 18 127/43 97 Room Air 08/06/24 07:50 94 Room Air* 0 21 08/06/24 07:48 98.4 82 17 126/85 94 Room Air LABS: Laboratory: Test 08/06/24 05:16 08/05/24 11:20 08/05/24 11:10 Range/Units White Blood Count 11.4 #H 4.8-10.8 K/uL Red Blood Count 4.32 L 4.50-6.20 MIL/uL Hemoglobin 12.9 L 14.0-18.0 g/dL Hematocrit 38.5 L 42-54 % Mean Corpuscular Volume 89.1 79-99 fL Mean Corpuscular Hemoglobin 29.9 27.0-33.0 pg Mean Corpuscular Hemoglobin Concent 33.5 32.0-36.0 g/dL Red Cell Distribution Width 13.6 11.0-15.5 % Platelet Count 169 130-400 K/uL Mean Platelet Volume 10.1 7.5-10.5 fL Immature Granulocyte % (Auto) 0.4 0-1 % Neutrophils (%) (Auto) 77.7 H 40.0-77.0 % Lymphocytes (%) (Auto) 12.1 L 21.0-51.0 % Monocytes (%) (Auto) 7.8 3.0-13.0 % Eosinophils (%) (Auto) 1.7 0.0-8.0 % Basophils (%) (Auto) 0.3 0.0-5.0 % Neutrophils # (Auto) 8.8 H 1.8-7.7 K/uL Lymphocytes # (Auto) 1.4 1.0-4.8 K/uL Monocytes # (Auto) 0.9 0.1-1.0 K/uL Eosinophils # (Auto) 0.19 0.00-0.70 K/uL Basophils # (Auto) 0.03 0.00-0.20 K/uL Absolute Immature Granulocyte (auto 0.04 0-1 K/uL Nucleated Red Blood Cells 0.0 0.0-0.19 % Erythrocyte Sedimentation Rate 41 H 0-20 MM/HR Sodium Level 138 136-145 mmol/L Potassium Level 4.0 3.5-5.1 mmol/L Chloride Level 103 101-111 mmol/L Carbon Dioxide Level 24 21-32 mmol/L Blood Urea Nitrogen 8 7-18 mg/dL Creatinine 0.8 0.5-1.3 mg/dL Glomerular Filtration Rate Calc 103 >90 mL/min Random Glucose 112 H 70-105 mg/dL Lactic Acid Level 1.4 0.8-2.5 mmol/L Total Calcium 8.5 8.5-10.1 mg/dL Magnesium Level 2.00 1.80-2.40 mg/dL Total Bilirubin 0.9 0.2-1.0 mg/dL Direct Bilirubin 0.1 0.0-0.3 mg/dL Aspartate Amino Transf (AST/SGOT) 23 10-37 U/L Alanine Aminotransferase (ALT/SGPT) 20 12-78 U/L Alkaline Phosphatase 58 50-136 U/L Total Protein 6.5 6.0-8.3 g/dL Albumin 2.8 L 3.5-5.0 g/dL Segmented Neutrophils % 59 40-70 % Band Neutrophils % 15 H 0-2 % Lymphocytes % (Manual) 22 22-44 % Monocytes % (Manual) 4 2-9 % Differential Comment MANUAL DIFFERENTIAL White Cell Morphology Comment CONSISTENT W/DIFF Platelet Morphology Comment ADEQUATE Red Blood Cell Morphology NORMAL Hemoglobin A1c 5.0 4.0-6.0 % Estimated Average Glucose (eAG) 97 70-126 mg/dL Lipase 15 L 16-77 U/L Urine Color YELLOW YELLOW Urine Appearance CLEAR CLEAR Urine pH 6.0 5.0-8.0 Urine Specific [place] 1.016 1.001-1.031 Urine Protein 30 H NEGATIVE mg/dL Urine Glucose (UA) NEGATIVE NEGATIVE mg/dL Urine Ketones NEGATIVE NEGATIVE mg/dL Urine Occult Blood NEGATIVE NEGATIVE Urine Nitrate NEGATIVE NEGATIVE Urine Bilirubin NEGATIVE NEGATIVE mg/dL Urine Urobilinogen 0.2 0.2-1.0 mg/dL Urine Leukocyte Esterase NEGATIVE NEGATIVE Radha/uL Urine RBC 2-5 H 0-1 /HPF Urine WBC 2-5 H 0-1 /HPF Urine Bacteria None None Seen /HPF Current Medications Medications (Trade) Dose Ordered Sig/Mikey Route PRN Reason Start Time Stop Time Status Last Admin Dose Admin Acetaminophen (TYLenol 325MG TAB) 650 mg Q4H PRN PO MILD PAIN (1-3) 08/05/24 20:30 09/04/24 20:29 Acetaminophen (TYLenol 325MG TAB) 650 mg Q6H PRN PO TEMPERATURE GREATER THAN 101.5 08/05/24 20:30 09/04/24 20:29 Famotidine (Pepcid 20mg Vial) 20 mg BID IV 08/05/24 21:00 09/04/24 20:59 08/06/24 07:55 20 MG Guaifenesin/ Dextromethorphan (RobiTUSSin DM 200/20MG 10ML) 10 ml Q6H PRN PO COUGH 08/06/24 01:00 09/05/24 00:59 08/06/24 01:03 10 ML Magnesium Sulfate 50 ml @ 0 mls/hr PROTOCOL PRN IV OTHER [SEE ORDER COMMENTS] 08/05/24 20:30 09/04/24 20:29 Morphine Sulfate (morPHINE 2MG SYG) 2 mg Q4H PRN IVP SEVERE PAIN (7-10) 08/05/24 20:30 08/12/24 20:29 08/06/24 12:43 2 MG Morphine Sulfate (morPHINE 4MG SYG) 4 mg ONCE IVP 08/05/24 18:30 08/05/24 23:30 DC 08/05/24 18:46 4 MG Ondansetron HCl (zoFRAN 4MG INJ) 4 mg Q6H PRN IV NAUSEA/VOMITING 08/05/24 20:30 09/04/24 20:29 Piperacillin Sod/ Tazobactam Sod 50 ml @ 12.5 mls/hr Q8H IV 08/05/24 23:30 08/15/24 23:29 08/06/24 07:50 12.5 MLS/HR Piperacillin Sod/ Tazobactam Sod (Zosyn 3.375gm+NS 50ml) 3.375 gm ONCE STAT IVPB 08/05/24 15:03 08/05/24 15:05 DC 08/05/24 15:34 3.375 GM Potassium Chloride 100 ml @ 100 mls/hr AD PRN IV POTASSIUM PROTOCOL 08/05/24 20:30 09/04/24 20:29 Potassium Chloride (K-Dur/Klor-Con 20meq) 20 meq AD PRN PO POTASSIUM PROTOCOL 08/05/24 20:30 09/04/24 20:29 Potassium Chloride (KCl 10% Elixir 20meq/15ml) 20 meq AD PRN PO POTASSIUM PROTOCOL 08/05/24 20:30 09/04/24 20:29 Sodium Chloride 1,000 ml @ 100 mls/hr Q10H IV 08/05/24 20:30 09/04/24 20:29 08/05/24 20:57 100 MLS/HR DIAGNOSTICS / RADIOLOGY: [ ] ASSESSMENT: Acute sigmoid diverticulitis POA Acute leukocytosis POA Hyperglycemia POA Morbid obesity POA Hyperlipidemia POA GERD POA PLAN: Continue medical telemetry We will keep patient NPO We will continue on Zosyn IV Q 8 hours for empiric coverage Continue NS @ 100 ml / hr and re evaluate Continue on Famotidine 20 mg IV bid for GI prophylaxis We will replace electrolytes as needed per protocol We will add prn medication for fever,pain,cough, nausea and vomiting We will reconcile home meds once medlist available We will request labs in am Further orders to follow depending on above results Case discussed with attending physician and came up with above treatment and plan of care. ATTESTATION BY PHYSICIAN I have seen and examined the patient. I reviewed the documentation, medical decision making, and treatment plan as noted by the mid-level provider above. I agree with the findings and plan of care. JEN MORA MD,BYRON DE LA CRUZPCNP Aug 06, 2024 13:57
--- NOTE | 2024-08-06 22:40 | NUR ---
CIWA PROTOCOL INITIATION PT WITH FULL BODY TREMORS ANXIOUS RESTLESS THRASHING IN BED. VERBALLY STATING THIS HAS NEVER HAPPENED BEFORE.PT MOANING STATED HE TOOK A SUDAFED OUT OF HIS OWN SUPPLY NODDED TOWARDS A BAG ON HOOK.PT STATED HE DRINKS 3-4 BEERS A DAY AND 1 SHOT OF WHISKY NIGHTLY HASNT HAD A DRINK SINCE MONDAY.MEDICATION REMOVED FROM ROOM BAGGEDAND LABELED PT INSTRUCTED WHEN COMES IN TOMMORROW SHE CAN TAKE HOME. CONTROLS TECHNICIAN LITA HOSPITALIST JUWAN MADE AWARE OF PT STATUS AND HAPPENINGS ORDERS GIVEN FOR CIWA PROTOCOL. V/S 167/96 97% O2 SAT HR 120 T 98.7
[2024-08-06] MEDS: LORazepam 2 MG/ML 1 ML VIAL IVP PRN (22:55)
[2024-08-06] MEDS ORDERED: PHARMACY COMMUNICATION MISC PRN (23:00)
[2024-08-07 00:02] VITALS: BP 118/69; PULSE 104; RESP 18; TEMP 98.7
[2024-08-07 03:40] VITALS: BP 110/63; PULSE 77; RESP 18; TEMP 98.2
[2024-08-07 08:00] VITALS: BP 143/92; PULSE 76; RESP 19; TEMP 98.3; O2SAT 95
[2024-08-07 12:04] VITALS: BP 126/69; PULSE 77; RESP 19; TEMP 98
--- NOTE | 2024-08-07 12:31 | PN ---
[facility] PROGRESS NOTE Date of Service: Aug 07, 2024 Time of Service: 12:27 SUBJECTIVE: [59-year-old male admitted for acute sigmoid diverticulitis with no abscess or perforation. His WBCs slowly downtrending. Patient is afebrile. He continue with pain to his lower abdomen. Continue with IV fluids. Continue with IV antibiotics. Because of his symptoms we will keep him NPO. I discussed treatment plan with the patient and at bedside, all questions have been addressed, they verbalized understanding and is in agreement with the plan. ] 08/07/24 patient was evaluated this morning with his at bedside. He reported abdominal pain is slowly subsiding. We will start patient on clear liquid diet and monitor him all day[place] [id number] today, he is afebrile. He will continue with current IV antibiotics. REVIEW OF SYSTEMS CONSTITUTIONAL: Denies fevers, chills, or night sweats. No unintentional weight loss reported. NEUROLOGICAL: Denies headache, amaurosis fugax, motor weakness, sensory deficit, vertigo/spinning sensation, gait abnormalities, or tremors. ENT: No hearing loss, otalgia, otorrhea, rhinitis, rhinorrhea, hoarseness, or sore throat. CARDIOVASCULAR: Denies any exertional angina, dyspnea on exertion, orthopnea, paroxysmal nocturnal dyspnea, palpitations, life-threatening arrhythmias, claudication. PULMONARY: Denies any shortness of breath, cough, phlegm/sputum, hemoptysis, pleuritic chest pain. SLEEP: Denies morning headaches, daytime somnolence or napping. Denies difficulty falling asleep, staying asleep, waking from sleep. Denies knowledge of snoring. GASTROINTESTINAL: Complained of Bilateral lower abdominal pain and constipation Denies any type of dysphagia to either liquids or solids. Denies nausea, vomiting, pyrosis, early satiety, diarrhea, changes in stool consistency or caliber. Denies coffee-ground emesis, hematemesis, hematochezia, or melanotic stools. GENITOURINARY: Denies frequency, urgency, nocturia, hematuria or incontinence (Storage/Irritative symptoms.) Low urinary stream, straining to void, urinary intermittency or hesitancy, splitting of the voiding stream, terminal dribbling. ENDOCRINOLOGIC: Denies polyuria, polydipsia, polyphagia or heat/cold intolerances. HEMATOLOGIC: Denies thrombophilia/previous clots, or coagulopathy/bleeding disorders. ONCOLOGIC: Denies personal history of malignancy. DERMATOLOGIC: Denies rashes or pruritus. PSYCHIATRIC: Denies any suicidal or homicidal ideation. Denies hallucinations. PHYSICAL EXAM GENERAL APPEARANCE: The patient is awake, alert, and oriented, in no acute cardiopulmonary distress. NEUROLOGICAL: Cranial nerves II-XII grossly intact. Motor is 5/5 in bilateral upper and lower extremities proximal to distal. No sensory deficits. HEENT: Face is symmetric. Pupils are equal and reactive. Extraocular movements are intact. NECK: Supple. No JVD. No thyromegaly. No submental, submandibular, pre- /postauricular, occipital or supraclavicular lymphadenopathy. CHEST: Normal chest expansion. No Telemetry. LUNGS: Absence of any rales, rhonchi or any wheezing. CARDIOVASCULAR: Regular. S1 and S2 normal. No appreciable rubs, murmurs or gallops. ABDOMEN: Abdominal tenderness around lower abdominal quadrant Soft and nondistended. There is no rebound, voluntary guarding, or rigidity. : Deferred. No Cordero. EXTREMITIES: Non-edematous and not cyanotic. No clubbing. Good capillary refill. SKIN: No skin breakdown. Vital Signs (last 8hr) Date Time Temp Pulse Resp B/P (MAP) Pulse Ox O2 Delivery O2 Flow Rate FiO2 08/07/24 12:04 98.1 77 19 126/69 95 Room Air 08/07/24 08:00 98.2 76 19 143/92 95 Room Air LABS: Laboratory: Test 08/06/24 22:34 08/06/24 05:16 Range/Units Whole Blood Glucose 86 70-110 MG/DL White Blood Count 11.4 #H 4.8-10.8 K/uL Red Blood Count 4.32 L 4.50-6.20 MIL/uL Hemoglobin 12.9 L 14.0-18.0 g/dL Hematocrit 38.5 L 42-54 % Mean Corpuscular Volume 89.1 79-99 fL Mean Corpuscular Hemoglobin 29.9 27.0-33.0 pg Mean Corpuscular Hemoglobin Concent 33.5 32.0-36.0 g/dL Red Cell Distribution Width 13.6 11.0-15.5 % Platelet Count 169 130-400 K/uL Mean Platelet Volume 10.1 7.5-10.5 fL Immature Granulocyte % (Auto) 0.4 0-1 % Neutrophils (%) (Auto) 77.7 H 40.0-77.0 % Lymphocytes (%) (Auto) 12.1 L 21.0-51.0 % Monocytes (%) (Auto) 7.8 3.0-13.0 % Eosinophils (%) (Auto) 1.7 0.0-8.0 % Basophils (%) (Auto) 0.3 0.0-5.0 % Neutrophils # (Auto) 8.8 H 1.8-7.7 K/uL Lymphocytes # (Auto) 1.4 1.0-4.8 K/uL Monocytes # (Auto) 0.9 0.1-1.0 K/uL Eosinophils # (Auto) 0.19 0.00-0.70 K/uL Basophils # (Auto) 0.03 0.00-0.20 K/uL Absolute Immature Granulocyte (auto 0.04 0-1 K/uL Nucleated Red Blood Cells 0.0 0.0-0.19 % Erythrocyte Sedimentation Rate 41 H 0-20 MM/HR Sodium Level 138 136-145 mmol/L Potassium Level 4.0 3.5-5.1 mmol/L Chloride Level 103 101-111 mmol/L Carbon Dioxide Level 24 21-32 mmol/L Blood Urea Nitrogen 8 7-18 mg/dL Creatinine 0.8 0.5-1.3 mg/dL Glomerular Filtration Rate Calc 103 >90 mL/min Random Glucose 112 H 70-105 mg/dL Lactic Acid Level 1.4 0.8-2.5 mmol/L Total Calcium 8.5 8.5-10.1 mg/dL Magnesium Level 2.00 1.80-2.40 mg/dL Total Bilirubin 0.9 0.2-1.0 mg/dL Direct Bilirubin 0.1 0.0-0.3 mg/dL Aspartate Amino Transf (AST/SGOT) 23 10-37 U/L Alanine Aminotransferase (ALT/SGPT) 20 12-78 U/L Alkaline Phosphatase 58 50-136 U/L Total Protein 6.5 6.0-8.3 g/dL Albumin 2.8 L 3.5-5.0 g/dL Current Medications Medications (Trade) Dose Ordered Sig/Mikey Route PRN Reason Start Time Stop Time Status Last Admin Dose Admin Acetaminophen (TYLenol 325MG TAB) 650 mg Q4H PRN PO MILD PAIN (1-3) 08/05/24 20:30 09/04/24 20:29 Acetaminophen (TYLenol 325MG TAB) 650 mg Q6H PRN PO TEMPERATURE GREATER THAN 101.5 08/05/24 20:30 09/04/24 20:29 Chlordiazepoxide HCl (LIBrium 25 MG CAP) 25 mg Q2H PRN PO ALCOHOL WITHDRAWAL PROTOCOL 08/06/24 23:00 08/13/24 22:59 Famotidine (Pepcid 20mg Vial) 20 mg BID IV 08/05/24 21:00 09/04/24 20:59 08/07/24 08:59 20 MG Guaifenesin/ Dextromethorphan (RobiTUSSin DM 200/20MG 10ML) 10 ml Q6H PRN PO COUGH 08/06/24 01:00 09/05/24 00:59 08/06/24 01:03 10 ML Lorazepam (AtiVAN) 2 mg Q4H PRN IVP ALCOHOL WITHDRAWAL PROTOCOL 08/06/24 23:00 08/13/24 22:59 08/06/24 22:55 2 MG Magnesium Sulfate 50 ml @ 0 mls/hr PROTOCOL PRN IV OTHER [SEE ORDER COMMENTS] 08/05/24 20:30 09/04/24 20:29 Morphine Sulfate (morPHINE 2MG SYG) 2 mg Q4H PRN IVP SEVERE PAIN (7-10) 08/05/24 20:30 08/12/24 20:29 08/06/24 12:43 2 MG Morphine Sulfate (morPHINE 4MG SYG) 4 mg ONCE IVP 08/05/24 18:30 08/05/24 23:30 DC 08/05/24 18:46 4 MG Ondansetron HCl (zoFRAN 4MG INJ) 4 mg Q6H PRN IV NAUSEA/VOMITING 08/05/24 20:30 09/04/24 20:29 Pharmacy Profile Note (Pharmacy Communication) 1 each PROTOCOL PRN MISC ETOH Withdrawal Score changes 08/06/24 23:00 08/13/24 22:59 Piperacillin Sod/ Tazobactam Sod 50 ml @ 12.5 mls/hr Q8H IV 08/05/24 23:30 08/15/24 23:29 08/07/24 06:45 12.5 MLS/HR Piperacillin Sod/ Tazobactam Sod (Zosyn 3.375gm+NS 50ml) 3.375 gm ONCE STAT IVPB 08/05/24 15:03 08/05/24 15:05 DC 08/05/24 15:34 3.375 GM Potassium Chloride 100 ml @ 100 mls/hr AD PRN IV POTASSIUM PROTOCOL 08/05/24 20:30 09/04/24 20:29 Potassium Chloride (K-Dur/Klor-Con 20meq) 20 meq AD PRN PO POTASSIUM PROTOCOL 08/05/24 20:30 09/04/24 20:29 Potassium Chloride (KCl 10% Elixir 20meq/15ml) 20 meq AD PRN PO POTASSIUM PROTOCOL 08/05/24 20:30 09/04/24 20:29 Sodium Chloride 1,000 ml @ 100 mls/hr Q10H IV 08/05/24 20:30 09/04/24 20:29 08/06/24 15:28 100 MLS/HR DIAGNOSTICS / RADIOLOGY: [ ] ASSESSMENT: Acute sigmoid diverticulitis POA Acute leukocytosis POA Hyperglycemia POA Morbid obesity POA Hyperlipidemia POA GERD POA PLAN: Continue medical telemetry Patient can be on clear liquid diet We will continue on Zosyn IV Q 8 hours for empiric coverage Continue NS @ 100 ml / hr and re evaluate Continue on Famotidine 20 mg IV bid for GI prophylaxis We will replace electrolytes as needed per protocol We will add prn medication for fever,pain,cough, nausea and vomiting We will reconcile home meds once medlist available We will request labs in am Further orders to follow depending on above results Case discussed with attending physician and came up with above treatment and plan of care. ATTESTATION BY PHYSICIAN I have seen and examined the patient. I reviewed the documentation, medical decision making, and treatment plan as noted by the mid-level provider above. I agree with the findings and plan of care. JEN MORA MD, JANICE B AGPCROBERTA Aug 07, 2024 12:31
[2024-08-07 16:15] VITALS: BP 127/77; PULSE 78; RESP 19; TEMP 98.3
[2024-08-07 20:00] VITALS: BP 138/85; PULSE 75; RESP 17; TEMP 98.1; O2SAT 95
[2024-08-07] MEDS: simVASTatin 20 MG TABLET PO SCH (21:11)
[2024-08-07] MEDS: chlordiazePOXIDE HCL 25 MG CAP PO PRN (21:11)
[2024-08-08] VITALS: BP 135/90; PULSE 83; RESP 16; TEMP 98.5
[2024-08-08 04:00] VITALS: BP 134/81; PULSE 80; RESP 16; TEMP 98.7
[2024-08-08 04:58] LABS: HEMATOCRIT 40.3 % (42-54); MEAN CORPUSCULAR HEMOGLOBIN 29.2 pg (27.0-33.0); MEAN CORPUSCULAR HGB CONC 33.7 g/dL (32.0-36.0); MEAN CORPUSCULAR VOLUME 86.7 fL (79-99); RED BLOOD CELL COUNT(AUTO) 4.65 MIL/uL (4.50-6.20); RED CELL DISTRIBUTION WIDTH 13.2 % (11.0-15.5); WHITE BLOOD COUNT (AUTO) 10.5 K/uL (4.8-10.8)
[2024-08-08 05:22] LABS: CREATININE 0.9 mg/dL (0.5-1.3); POTASSIUM 3.6 mmol/L (3.5-5.1)
[2024-08-08 08:00] VITALS: BP 149/97; PULSE 88; RESP 19; TEMP 97.6
[2024-08-08 08:45] VITALS: O2SAT 95
[2024-08-08 12:10] VITALS: BP 137/91; PULSE 78; RESP 19; TEMP 98
[2024-08-08] MEDS ORDERED: METR-172 PO (14:19)
[2024-08-08] MEDS ORDERED: LEVO-70 PO (14:19)
--- NOTE | 2024-08-08 14:25 | DS ---
Discharge Summary Hospital Course Summary: This is a 59-year-old male a winter [place] coming [place] with past medical history of GERD and hyperlipidemia who presents to the ED for complaints of lower quadrant abdominal pain associated with difficulty of urination which started yesterday.Patient reports he was very constipated yesterday and had to use a suppository and afforded slight relief.Today lower abdominal pain persist so he decieded to come to the ED for evaluation. Patient reports he had EGD and colonoscopy on 2023 and was told he has a GERD and a benign polyps.Patient denies fever,chills,nausea,vomiting ,chest pain,palpitation and shortness of breath. Latest vital signs temperature 99.9, heart rate 91, blood pressure 144/90 saturation 97% on room air. Labs: WBC 15.3 with negative left shift of neutrophils 83, hemoglobin 15, hematocrit 43 platelet count 200. Sodium 132, chloride 97, glucose [address] abdomen and pelvis with contrast result revealed there is sigmoid colon wall thickening with adjacent fat stranding suggestive acute sigmoid diverticulitis. No focal abscess is seen. Bladder is poorly distended wall thickening with adjacent fat stranding suspicious for cystitis urinalysis correlation may be helpful. While in the ER patient received Zosyn IV, morphine 4 mg IV, Toradol 30 mg IV and 1 L NS bolus. We will admit patient for further medical management. Patient was admitted to continue with IV antibiotics and symptom management. Patient was receiving IV antibiotics for sigmoid diverticulitis. Patient also was kept NPO until his symptoms slowly improved. He was on IV narcotic medications for pain. Yesterday patient's symptoms actually improved and we started him on clear liquid diet for which he has tolerated. Patient will be transitioned to full liquid diet for lunch and if tolerated he will be on soft diet for supper. Once patient tolerate the diet, he can be discharged home. His leukocytosis actually now is within normal limits, he is free from fever. No complaints of abdominal pain no nausea no vomiting diarrhea. Patient is stable to be discharged once he completed supper and has tolerated. Procedure(s): [place] [address] [place] [address] [id number] IMAGING REPORT Signed PATIENT: BANDAR JALLOH MR#: [id number] : 1965 SEX: M AGE: 59 LOCATION: [facility] ORDER 01 STATUS: [facility] REPORT#: [id number] SERVICE [id number] REASON: LEFT LOWER QUADRANT PAIN TENDERNESS. CONSTIPATION.H/O DIVERT D ORDERING PHYSICIAN: NURA SHAFER NP PROCEDURE: ABD PEL W - CT ABDOMEN/PELVIS W/CONTRAST CT ABDOMEN/PELVIS W/CONTRAST HISTORY: Left lower abdominal pain and tenderness COMPARISON: None TECHNIQUE: Multiple sequential axial images of the abdomen and pelvis were obtained from the dome of the diaphragm through symphysis pubis. Patient was not given contrast through intravenous route. Oral contrast was not given. FINDINGS: No pleural effusion is seen bilaterally. There is no evidence of parenchymal disease or pulmonary nodule of the visualized lower lungs. Degenerative changes of the thoracolumbar spine are present. The heart is not enlarged. The liver, spleen, adrenal glands and pancreas are unremarkable. There is no evidence of hydronephrosis bilaterally. No evidence of renal stone is seen. Fecal material is seen in the colon. There are normal size retroperitoneal and mesenteric lymph nodes. No ascites is seen. Atherosclerotic changes are present. There is sigmoid colon wall thickening with adjacent fat stranding suggestive acute sigmoid diverticulitis. No focal abscess is seen. Pelvic sidewalls are symmetric bilaterally. Bladder is poorly distended wall thickening with adjacent fat stranding suspicious for cystitis. Urinalysis correlation may be helpful. IMPRESSION: 1. There is sigmoid colon wall thickening with adjacent fat stranding suggestive acute sigmoid diverticulitis. No focal abscess is seen. Bladder is poorly distended wall thickening with adjacent fat stranding suspicious for cystitis. Urinalysis correlation may be helpful. CT was performed with one or more following dose reduction techniques: automated exposure control, adjustment of the mA and kv according to patient's size, or use of a iterative reconstruction technique. DICTATED BY: MARY SANDERS MD DATE: 08/05/241451 ELECTRONICALLY SIGNED BY: MARY SANDERS MD DATE: 08/05/241455 Assessment/Plan: DISCHARGE DIAGNOSES Acute sigmoid diverticulitis POA Acute leukocytosis POA-now WNL Hyperglycemia POA Morbid obesity POA Hyperlipidemia POA GERD POA ADMITTING DIAGNOSES Acute sigmoid diverticulitis POA Acute leukocytosis POA Hyperglycemia POA Morbid obesity POA Hyperlipidemia POA GERD POA Discharge Instructions: Follow up with your PCP in 2-3 days Follow-up with your process description writer in six weeks Home Medications: Reported Medications Lansoprazole (Prevacid) 30 Mg Capsule.dr, 1 CAP PO DAILY for 30 Days, #30 CAP 0 Refills 08/06/24 Multivitamin (Multi Vitamin Daily) 1 Each Tablet, 1 TAB PO DAILY for 30 Days, #30 TAB 0 Refills 08/06/24 Pregabalin (Pregabalin) 50 Mg Capsule, 1 CAP PO TID PRN for PAIN 08/06/24 Simvastatin (Simvastatin) 40 Mg Tablet, 1 TAB PO HS for cholesterol 08/06/24 New Medications: Levofloxacin (Levofloxacin) 500 Mg Tablet 1 TAB PO DAILY for 10 Days, #10 TAB 0 Refills Metronidazole (Metronidazole) 500 Mg Tablet 1 TAB PO TID for 10 Days, #30 TAB 0 Refills Continued Medications: Lansoprazole (Prevacid) 30 Mg Capsule.dr 1 CAP PO DAILY for 30 Days, #30 CAP 0 Refills Multivitamin (Multi Vitamin Daily) 1 Each Tablet 1 TAB PO DAILY for 30 Days, #30 TAB 0 Refills Pregabalin (Pregabalin) 50 Mg Capsule 1 CAP PO TID PRN for PAIN Simvastatin (Simvastatin) 40 Mg Tablet 1 TAB PO HS for cholesterol Time spent arranging discharge: 31-60 minutes ATTESTATION BY PHYSICIAN I have seen and examined the patient. I reviewed the documentation, medical decision making, and treatment plan as noted by the mid-level provider above. I agree with the findings and plan of care. JEN MORA MD, [facility] B [facility] Aug 08, 2024 14:25
[2024-08-08 16:12] VITALS: BP 139/94; PULSE 87; RESP 19; TEMP 98.2
== END 2024-08-08 18:10 | disposition home or self-care (01) | DRG 392 ==
LOC: EDH 10:56 → EDHIP 19:02 → 4BH 21:33
PROVIDERS: ADMIT Internal Medicine; ATTEND Internal Medicine
DX: K57.32 Diverticulitis of large intestine without perforation or abscess without bleeding (principal); K21.9 Gastro-esophageal reflux disease without esophagitis; E78.5 Hyperlipidemia, unspecified; E66.01 Morbid (severe) obesity due to excess calories; K59.00 Constipation, unspecified; D72.829 Elevated white blood cell count, unspecified; Z88.6 Allergy status to analgesic agent; Z68.33 Body mass index [BMI] 33.0-33.9, adult; Z82.49 Family history of ischemic heart disease and other diseases of the circulatory system; Z79.899 Other long term (current) drug therapy
CPT/HCPCS: 36415; 74177; 80048; 80076; 81001; 82948; 83036; 83605; 83690; 83735; 85025; 85027; 85651; 87040; G0378; J1885; J2060; J2270; J2543; J3490; J7030; Q9967